=== PATIENT | male | born 1950 | race African-American/Black ===

== ENCOUNTER 2019-09-18 16:45 | Inpatient (IN) | payer OTHER, MEDICARE ==
[~2019-09-18] VITALS: Ht 182.9 cm; Wt 78.9 kg
--- NOTE | 2019-09-18 17:00 | NUR ---
1 to 1 security and compliance analyst at the bedside.
[2019-09-18] MEDS ORDERED: FLUT9.9S NS (17:08)
[2019-09-18] MEDS ORDERED: AMLO5TAB9 PO (17:08)
[2019-09-18] MEDS ORDERED: CEPH-570 PO (17:08)
[2019-09-18] MEDS ORDERED: SILD100T PO (17:08)
[2019-09-18] MEDS ORDERED: TAMS-3 PO (17:08)
[2019-09-18] MEDS ORDERED: LORAZEPAM 0.5 MG TABLET PO ONE (17:15)
--- NOTE | 2019-09-18 17:22 | NUR ---
Pt provided dinner, ate w/ good appetite.
--- NOTE | 2019-09-18 17:22 | NUR ---
Pt refused COVID 19 test and Ativan, Dr Cross made aware.
--- NOTE | 2019-09-18 17:24 | NUR ---
PT medically cleared by Dr Cross.
[2019-09-18 18:00] VITALS: BP 166/89
[2019-09-18] MEDS ORDERED: MAG HYDROX/AL HYDROX/SIMETH 30 ML LIQUID UDC PO PRN (18:15)
[2019-09-18] MEDS ORDERED: MAGNESIUM HYDROXIDE 30 ML LIQUID UDC PO PRN (18:15)
[2019-09-18] MEDS ORDERED: CLONAZEPAM 0.5 MG TABLET PO PRN (18:15)
[2019-09-18] MEDS ORDERED: TEMAZEPAM 7.5 MG CAPSULE PO PRN (18:15)
[2019-09-18] MEDS ORDERED: ACETAMINOPHEN 325 MG TABLET PO PRN (18:15)
--- NOTE | 2019-09-18 19:19 | NUR ---
1800 Admitted to [facility] a 68 yr. old m , placed on 5150 for GD and DTS . Patient having paranoid and delusional behavior, been carrying around knife and threatened to harm neighbor s ,. Patient believes he seeing gas in the house and that neighbors are trying to poiuson him due to racial reasons.Patient shaved his hair, rubbed his leg raw and stuck with Qtips in his right ear. Patient unable to take care of himself. Upon face to face patient is very agitated , refused to sign admission papers., grandious, talking about his salary, fully paid house and doesn't like his bed. Charge nurse notify Dr. Ayala and [facility] doctor to reconciule medication.
[2019-09-18 20:23] VITALS: BP 125/66
--- NOTE | 2019-09-18 20:24 | NUR ---
Recieved Patient in jennifer chair. AAO x3. Denies SI. No behavioral issues. Refused going to his room, stated that he does not like the room and bed. Explained his options, but he preferred to stay in jennifer chair. Continue to monitor.
[2019-09-18] MEDS ORDERED: TAMSULOSIN HCL 0.4 MG CAP.SR.24H PO ONE (21:15)
--- NOTE | 2019-09-18 21:25 | NUR ---
Patient requested to have Flomax 0.4 mg cap, stated that he did not take it today afternoon. The order is BID 0900 and 1700. Contacted [facility] on-call and received order of Flomax 0.4 mg @2100 once from Vanessa Barreto NP. Medication administered.
[2019-09-19 07:30] VITALS: BP 151/92
[2019-09-19] MEDS: CEphaleXIN 500 MG CAPSULE PO SCH ×3 (08:10→17:10)
[2019-09-19] MEDS: AMLODIPINE 5 MG TABLET PO SCH ×2 (08:10→08:19)
[2019-09-19] MEDS: TAMSULOSIN HCL 0.4 MG CAP.SR.24H PO SCH ×2 (08:11→17:10)
[2019-09-19] MEDS: OLANZAPINE ZYDIS 5 MG TAB.RAPDIS PO SCH ×2 (14:30→17:12)
--- NOTE | 2019-09-19 16:00 | NUR ---
Received patient this am standing in alvarado. Patients blood pressure was noted high in the am but patient refused to take the medication for hypertension despite educating him on its importance. Later in the afternoon patient refuse to allow staff to check VS and refused to take Zyprexa ordered by the Psychiatrist. Patient has been wandering in and out of rooms, including staffs kitchen and charting room. Noted to be paranoid and hyperverbal. Claims that " There is state gas coming in the building" , while pacing the alvarado with his mouth covered. Multiple attempts to redirect and reorient patient to environment. Continuing to monitor for safety, behavior escalation and encourage patient to be medication compliance. Poor response at this time.
[2019-09-19] MEDS ORDERED: CLONIDINE HCL 0.1 MG TABLET PO PRN (17:00)
--- NOTE | 2019-09-19 17:29 | NUR ---
Patient was offered the Zyprexa PO this evening and took it. Also sent a UA for culture and sensitivity as ordered. Received a call from previous Hospital that patient has ESBL of the urine. Dr. Obando aware. Patient still pacing halls and with some paranoia, but redirectable. Monitoring for behavior escalation.
[2019-09-19 17:40] LABS: *BILIRUBIN,URIN NEGATIVE (NEGATIVE); *CLARITY,URINE CLEAR (CLEAR); *COLOR,URINE YELLOW (YELLOW); *KETONES,URINE NEGATIVE (NEGATIVE); *UROBILINOGEN,URINE 0.2 E.U./dl (NORMAL); LEUKOCYTE ESTERASE ,URINE 2+ (NEGATIVE); NITRITE, URINE NEGATIVE (NEGATIVE); PH,URINE 6.5 (5.0-8.0); UGLUCOSE NEGATIVE (NEGATIVE)
[2019-09-19 17:44] LABS: *BLOOD, URINE TRACE (NEGATIVE)
[2019-09-19 20:01] LABS: BACTERIA,URINE FEW /HPF (NONE SEEN); RBC,URINE 0-3 /HPF (0-3)
[2019-09-19 20:02] LABS: SQUAMOUS EPITHELIAL CELL,UR NONE SEEN /HPF (NONE SEEN)
--- NOTE | 2019-09-19 20:33 | NUR ---
Received patient in jennifer chair. AAO x3. Denies SI. No behavioral issues. Refused going to his room and believes that there is gas in the rooms. Reinforced reality. Continue to monitor.
[2019-09-19 20:54] VITALS: BP 110/63
[2019-09-20 07:30] VITALS: BP 123/78
[2019-09-20] MEDS: TAMSULOSIN HCL 0.4 MG CAP.SR.24H PO SCH ×2 (08:28→16:30)
[2019-09-20] MEDS: OLANZAPINE ZYDIS 5 MG TAB.RAPDIS PO SCH ×2 (08:28→20:19)
[2019-09-20] MEDS: CEphaleXIN 500 MG CAPSULE PO SCH ×3 (08:29→16:30)
[2019-09-20] MEDS: AMLODIPINE 5 MG TABLET PO SCH ×2 (08:29→08:32)
--- NOTE | 2019-09-20 09:53 | NUR ---
UR Note: JACQUE received a call from [facility] Bath Solution Maker, Radha ([phone]), and JACQUE conducted a live clinical on the phone. manager core authorized the pt for 09/19-09/22 with new authorization #[id number].
--- NOTE | 2019-09-20 14:51 | NUR ---
Family Contact: SW called the pts , Nunu ([phone]), and discussed the pts discharge plan and initial treatment plan. Pts stated that she would like the pt to return to their home once he is discharged.
--- NOTE | 2019-09-20 15:19 | NUR ---
Initial Discharge Plan: Pt currently resides at his home located at [address] [place] [address]; ([phone]). Per pt, he would like to return to his home. JACQUE will work with the pt and the MD regarding appropriate discharge planning. SW will form a safe and proper discharge.
--- NOTE | 2019-09-20 15:58 | NUR ---
Received patient awake in jennifer chair. no behavioral problem noted. Good grooming and appearance noted. Patient continue ATB treatment keflex 500mg for UTI for 7days. no adverse reaction noted. Patient compliant with medication. Patient participates with daily activities. Patient spoke to the MD, denies suicidal and homicidal ideation. no signs of depression noted. Patient continue on fall risk precaution maintained. will continue monitor
[2019-09-21 07:30] VITALS: BP 132/75
--- NOTE | 2019-09-21 07:32 | NUR ---
PATIENT ALERT ORIENTED, PATIENT PREFER TO SLEEP ON THE RECLINING CHAIR. PATIENT STILL HAS PARANOID BEHAVIOR. NEEDS ENCOURAGEMENT IN TAKING MEDICATIONS.
[2019-09-21] MEDS: OLANZAPINE ZYDIS 5 MG TAB.RAPDIS PO SCH (08:12)
[2019-09-21] MEDS: CEphaleXIN 500 MG CAPSULE PO SCH ×3 (08:13→16:04)
[2019-09-21] MEDS: AMLODIPINE 5 MG TABLET PO SCH (08:13)
--- NOTE | 2019-09-21 08:50 | NUR ---
GPS: RECEIVED PATIENT AOX3-4 PATIENT SITTING ON A JORGE CHAIR, PATIENT ASK WHY HE NOT IN THE BED PATIENT REFUSED TO BE IN THE ROOM AND SAYING THAT HE WILL BE DISCHARGE TODAY , OFFERED A DIFFERENT ROOM AND ASK IF HE WANTS TO WATCH TV PATIENT REFUSED, PATIENT EASILY IRRITABLE , BUT COMPLIANT WITH MEDICATION WILL CONTINUE MONITOR
[2019-09-21] MEDS: risperiDONE 0.5 MG TABLET PO SCH ×2 (12:11→20:34)
--- NOTE | 2019-09-21 14:42 | NUR ---
patient approach the nursing station and wanted to have a talk, brought patient by his room and had a conversation, patient started talking about the 5249 hold that states about gravely disabled, patient verbalizes that he owns a house and paid his mortgage and he paid his taxes and he said that he is not gravely disabled, patient was calm but hyperverbal, recognized the patient that it was a good step that he recognizes the Hold criteria and a patient advocate will talk with him and he will have an appointment for a hearing for his hold, patient also gave recollection about his previous hospitalization, he said he was also recently admitted to [facility] and [facility], and in both hospitalization patient states that he was both on gravely disabled regarding the same paranoia that he was being gassed, patient then he said he was discharge from [facility] last July and was sent home, from home he was having thought about the neighbor was gassing him, redirect patient belief that all his labs result was normal except of having urine infection, and his SPO2 level was at 99% and that indicates that there was no poison, patient still having paranoid thoughts and strong delusion, was notified about the patients behavior
[2019-09-21 16:00] VITALS: BP 117/68
--- NOTE | 2019-09-21 18:19 | NUR ---
patient transfered to a different room and agreed not to stay in [facility] anymore, last seen sleeping on the bed , no distress at tis time compliant with medication
[2019-09-21] MEDS: TAMSULOSIN HCL 0.4 MG CAP.SR.24H PO SCH (20:34)
[2019-09-21 21:09] VITALS: BP 106/61
--- NOTE | 2019-09-22 02:51 | NUR ---
RECEIVED PATIENT IN HIS ROOM. AOX3. NOT IN DISTRESS OR PAIN. HOWEVER ADMITTED TO STILL SMELL THE GAS IN HIS NEW ROOM BUT NOT MUCH. EASILY IRRITABLE AND LATER WANTED TO SLEEP IN THE JORGE CHAIR. REDIRECTED BACK TO HIS ROOM. COMPLIANT WITH MEDICATION AND CARE. WILL CONTINUE TO MONITOR.
--- NOTE | 2019-09-22 06:32 | NUR ---
SLEPT FOR ABOUT 7:15 HOURS.
[2019-09-22 07:30] VITALS: BP 127/71
[2019-09-22] MEDS: CEphaleXIN 500 MG CAPSULE PO SCH ×3 (08:16→16:03)
[2019-09-22] MEDS: risperiDONE 0.5 MG TABLET PO SCH ×2 (08:16→21:02)
[2019-09-22] MEDS: AMLODIPINE 5 MG TABLET PO SCH (08:17)
--- NOTE | 2019-09-22 09:57 | NUR ---
GPS: received patient AOx3-4, patient in the hallway walking around with blanket over his Head, patient is still paranoid and delusional he is verbalizing that why other patient was allowed to sit in Jennifer chair , patient wanted to sit on jennifer chair in the hallway and being paranoid from the room having gas, patient compliant with medication and denies any pain , calm and pacing in the hallway
--- NOTE | 2019-09-22 11:55 | NUR ---
seen by Dr. Ayala, with orders made and carried out , patient aware
[2019-09-22 15:23] VITALS: BP 141/73
--- NOTE | 2019-09-22 18:18 | NUR ---
patient ate his dinner , last seen in his room, quiet and calm
[2019-09-22 20:18] VITALS: BP 102/51
[2019-09-22] MEDS: TAMSULOSIN HCL 0.4 MG CAP.SR.24H PO SCH (20:56)
--- NOTE | 2019-09-23 00:11 | NUR ---
RECEIVED PATIENT IN HIS ROOM SLEEPING. NOT IN DISTRESS OR PAIN. EASILY IRRITABLE BUT CALMS DOWN AFTER A WHILE. COMPLIANT WITH MEDICATION AND CARE. WILL CONTINUE TO MONITOR.
--- NOTE | 2019-09-23 06:31 | NUR ---
SLEPT FOR APPROX. 7HOURS. UP THIS MORNING AND REFUSED TO TAKE A SHOWER.
[2019-09-23 07:30] VITALS: BP 134/81
[2019-09-23] MEDS: CEphaleXIN 500 MG CAPSULE PO SCH ×3 (08:47→16:05)
[2019-09-23] MEDS: risperiDONE 0.5 MG TABLET PO SCH ×2 (08:47→20:48)
[2019-09-23] MEDS: AMLODIPINE 5 MG TABLET PO SCH (08:47)
[2019-09-23 15:15] VITALS: BP 125/66
--- NOTE | 2019-09-23 15:54 | NUR ---
UR Note: JACQUE called [facility], Radha ([phone]), and JACQUE conducted a clinical on her voicemail.
--- NOTE | 2019-09-23 16:23 | NUR ---
UR Note: JACQUE received a call from [facility] Die Cast Operator, Radha ([phone]), and JACQUE conducted a live clinical on the phone. quality systems manager authorized the pt for 09/23-09/24 with new authorization #[id number].
[2019-09-23 20:29] VITALS: BP 133/65
[2019-09-23] MEDS: TAMSULOSIN HCL 0.4 MG CAP.SR.24H PO SCH (20:48)
[2019-09-24 07:30] VITALS: BP 146/73
[2019-09-24] MEDS: risperiDONE 0.5 MG TABLET PO SCH ×2 (08:29→21:53)
[2019-09-24] MEDS: AMLODIPINE 5 MG TABLET PO SCH (08:30)
--- NOTE | 2019-09-24 15:00 | NUR ---
Social Work Firearms Report ([employer]): Veneer Joiner completed and submitted a [employer] firearms report for 5150 grave disability certification. A copy of report has been placed in patient chart.
[2019-09-24 18:37] VITALS: BP 106/61
[2019-09-24 20:31] VITALS: BP 127/69
[2019-09-24] MEDS: TAMSULOSIN HCL 0.4 MG CAP.SR.24H PO SCH (21:53)
[2019-09-25 07:30] VITALS: BP 122/71
[2019-09-25] MEDS: risperiDONE 0.5 MG TABLET PO SCH ×2 (08:38→20:05)
[2019-09-25] MEDS: AMLODIPINE 5 MG TABLET PO SCH (08:38)
--- NOTE | 2019-09-25 10:41 | NUR ---
Family Contact: SW called the pts , Nunu ([phone]), and informed her that the pt has been showing improvement but is not considered fully stable at this point. SW stated that the pt is still exhibiting paranoia towards the neighbors. JACQUE stated that once the MD believes that the pt is stable that he will be discharged home. Pts appreciated the update.
--- NOTE | 2019-09-25 15:13 | NUR ---
UR Note: JACQUE called [employer] Sheet [employer] Superintendent, Radha ([phone]), and JACQUE conducted a clinical on her voicemail.
--- NOTE | 2019-09-25 15:20 | NUR ---
UR Note: JACQUE received a call from [facility] Glass Pulverizer Equipment Operator, Radha ([phone]), and JACQUE conducted a live clinical on the phone. manager it security authorized the pt for 09/25-09/26 with new authorization #[id number].
[2019-09-25] MEDS: TAMSULOSIN HCL 0.4 MG CAP.SR.24H PO SCH (20:05)
[2019-09-25 20:17] VITALS: BP 121/74
--- NOTE | 2019-09-26 06:31 | NUR ---
PT SLEPT 8 HOURS AND 30 MINUTES. PT IN NO ACUTE DISTRESS. PT COOPERATIVE WITH CARE. PRESCRIBED MEDICATION GIVEN AND PT TOLERATED IT WELL. PT ISOLATIVE BUT PLEASANT WHEN APPROACHED. COOPERATIVE WITH CARE AND COMPLIANT WITH MEDICATION. SAFETY AND COMFORT PROVIDED. WILL ENDORSE TO INCOMING NURSE FOR CONTINUITY OF CARE.
[2019-09-26 07:30] VITALS: BP 109/66
[2019-09-26] MEDS: AMLODIPINE 5 MG TABLET PO SCH (08:51)
[2019-09-26] MEDS: risperiDONE 0.5 MG TABLET PO SCH ×2 (09:00→20:19)
[2019-09-26 16:00] VITALS: BP 133/75
[2019-09-26 20:00] VITALS: BP 118/65
[2019-09-26] MEDS: TAMSULOSIN HCL 0.4 MG CAP.SR.24H PO SCH (20:19)
--- NOTE | 2019-09-26 21:26 | NUR ---
Received pt walking in the hallway. No acute distress noted. Denies pain/ discomfort. Denies SI. Due meds given as ordered. Cooperative with care. Snacks given. Safety measures maintained. Will continue to monitor.
[2019-09-27 07:30] VITALS: BP 107/74
[2019-09-27] MEDS: risperiDONE 0.5 MG TABLET PO SCH (08:51)
[2019-09-27] MEDS: AMLODIPINE 5 MG TABLET PO SCH (08:52)
--- NOTE | 2019-09-27 09:30 | NUR ---
Family Contact: JACQUE called the pts , Nunu ([phone]), and informed her that the pt will be discharged tomorrow at 11AM. She stated that she would come pick him up.
--- NOTE | 2019-09-27 15:09 | NUR ---
SW Discharge Note (Early Entry) Patient will be discharged tomorrow 09/28/19 back home [address] [place] [address] ([phone]). Patients , Nunu ([phone]) will be picking up the patient and provide transportation back home at 11AM. Patient is aware and agreeable with discharge plan. Patient presents with appropriate mood and congruent affect. Patient denies suicidal or homicidal ideation. Patient will be following up with his primary care physician Dr. Buenrostro [address] [facility] [address] [place] [address] ([phone]) and has an appointment scheduled on Tuesday October 01, 2019 at 9AM via video. Patient is referred for outpatient psychiatrist services at [facility] ([phone]) with Dr. Cole [address] [place] [id number] and has an appointment scheduled on Monday September 30, 2019 at 1PM via Telehealth ([phone]).
[2019-09-27 16:00] VITALS: BP 115/79
[2019-09-27 20:00] VITALS: BP 119/63
[2019-09-27] MEDS ORDERED: risperiDONE 0.5 MG TABLET PO SCH (21:15)
[2019-09-27] MEDS: risperiDONE 2 MG TABLET PO SCH (21:57)
[2019-09-27] MEDS: TAMSULOSIN HCL 0.4 MG CAP.SR.24H PO SCH (21:57)
[2019-09-28 07:30] VITALS: BP 106/70
[2019-09-28 08:32] VITALS: BP 106/70
[2019-09-28] MEDS: AMLODIPINE 5 MG TABLET PO SCH (08:32)
[2019-09-28] MEDS: risperiDONE 2 MG TABLET PO SCH (08:32)
--- NOTE | 2019-09-28 11:00 | NUR ---
GPS: Nursing Notes: Discharge Notes: Patient is awake and responding to her name, A/Ox4, ambulatory, self care, cooperative with nursing care, compliant with his medications, following staff directions, denies any SI/HI, denies any AH/VH, denies any pain or discomfort, denies any SOB, discharge home with his - Nunu at [address] [place], [place] [id number] , instructions and prescriptions given to patient, transported home via private vehicle by his - Nunu, took all his belongings with him. Patient will be following up with his primary care physician Dr. Buenrostro [address] [address] ([phone]) and has an appointment scheduled on Tuesday October 01, 2019 at 9AM via video. Patient is referred for outpatient psychiatrist services at [facility] ([phone]) with Dr. Cole [address] [place] [address] and has an appointment scheduled on Monday September 30, 2019 at 1PM via Telehealth ([phone]).
== END 2019-09-28 11:00 | disposition home or self-care (01) | DRG 885 ==
LOC: ER 16:45 → GPS 17:42
PROVIDERS: ADMIT Psychiatry & Neurology Psychiatry; ATTEND Internal Medicine
DX: F29 Unspecified psychosis not due to a substance or known physiological condition (principal); N39.0 Urinary tract infection, site not specified; F23 Brief psychotic disorder; B96.89 Other specified bacterial agents as the cause of diseases classified elsewhere; I10 Essential (primary) hypertension; N40.1 Benign prostatic hyperplasia with lower urinary tract symptoms
CPT/HCPCS: 87086; A4663